=== PATIENT | female | born 1940 | race American Indian/Alaskan Native ===

== ENCOUNTER 2019-01-28 09:23 | Outpatient (CLI) | payer MEDICARE ==
--- NOTE | 2019-01-31 13:48 | Mammography Report ---
DIGITAL SCREENING MAMMOGRAM WITH CAD, 01/28/2019 INDICATION: Routine screening mammography. Breast cancer survivor status post right partial mastectom y and radiation therapy in 2013. TECHNIQUE: Digital bilateral 2D mammography was obtained in the craniocaudal and mediolateral obliq ue projections. This examination was interpreted with the benefit of Computer-Aided Detection analysi s. COMPARISON: None available. FINDINGS: Breast Density: There are scattered areas of fibroglandular density. There is no evidence of dominant mass, suspicious calcifications or architectural distortion in eithe r breast. The right breast is smaller than the left. Benign right upper outer postsurgical scar. Mode rate skin thickening of the right breast. IMPRESSION: No mammographic evidence of malignancy. Follow up recommendation: Routine yearly BI-RADS Category 2: Benign. A "normal" or negative report should not discourage follow up or biopsy of a clinically significant f inding. A written summary of these findings will be mailed to the patient. The patient will be entered into a mammography reporting system which will generate a reminder letter for the patient's next appointmen t at the appropriate interval. The [employer] recommends yearly mammograms starting at age 40 and continuing as l spencer as a woman is in good health. Breast MRI is recommended for women with an approximate 20-25% or greater lifetime risk of breast cancer, including women with a strong family history of breast or ova bogdan cancer or who have been treated for Hodgkin's disease. Signer Name: Mario Owen MD Signed: 01/31/2019 1:44 PM Workstation Name: [id number]
== END 2019-01-28 09:24 | disposition home or self-care (01) ==
LOC: SPVWC 09:23 → EDSTATUS 09:30
PROVIDERS: ATTEND Internal Medicine Allergy & Immunology
DX: Z12.31 Encounter for screening mammogram for malignant neoplasm of breast (principal)
CPT/HCPCS: 77067

== ENCOUNTER 2021-05-07 14:15 | Outpatient (CLI) | payer MEDICARE ==
--- NOTE | 2021-05-09 13:42 | Mammography Report ---
DIGITAL SCREENING MAMMOGRAM WITH CAD, 05/07/2021 CLINICAL INFORMATION / INDICATION: Routine screening mammography. TECHNIQUE: Digital bilateral 2D mammography was obtained in the craniocaudal and mediolateral obliqu e projections. This examination was interpreted with the benefit of Computer-Aided Detection analysis . COMPARISON: 01/28/2019 FINDINGS: Breast Density: There are scattered areas of fibroglandular density. No dominant mass, suspicious calcifications, or architectural distortion in either breast. Postlumpectomy and radiation changes noted in the right breast. Overall, no interval change. IMPRESSION: No mammographic evidence of malignancy. Follow up recommendation: Routine yearly BI-RADS Category 2: BENIGN. A "normal" or negative report should not discourage follow up or biopsy of a clinically significant f inding. A written summary of these findings will be mailed to the patient. The patient will be entered into a mammography reporting system which will generate a reminder letter for the patient's next appointmen t at the appropriate interval. The [employer] recommends yearly mammograms starting at age 40 and continuing as l spencer as a woman is in good health. Breast MRI is recommended for women with an approximate 20-25% or greater lifetime risk of breast cancer, including women with a strong family history of breast or ova bogdan cancer or who have been treated for Hodgkin's disease. Signer Name: Jeannette Amaral MD Signed: 05/09/2021 1:38 PM Workstation Name: [id number]
== END 2021-05-07 14:16 | disposition home or self-care (01) ==
LOC: SPVWC 14:15
PROVIDERS: ATTEND Internal Medicine Allergy & Immunology
DX: Z12.31 Encounter for screening mammogram for malignant neoplasm of breast (principal)
CPT/HCPCS: 77067